=== PATIENT | female | born 1990 | race African-American/Black ===

== ENCOUNTER 2018-03-01 13:42 | Emergency (ER) | payer OTHER ==
[~2018-03-01] VITALS: Ht 165.1 cm; Wt 64.9 kg
[2018-03-01] MEDS ORDERED: NKM (13:49)
[2018-03-01 13:53] VITALS: BP 137/90
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
[2018-03-01] MEDS ORDERED: Methocarbamol 500mg tab ORAL ONE (14:00)
[2018-03-01] MEDS ORDERED: Acetaminophen 500mg (ES) tab ORAL ONE (14:00)
--- NOTE | 2018-03-01 14:10 | NUR ---
ED Nurse Note: ua sent down to lab
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
--- NOTE | 2018-03-01 14:25 | NUR ---
ED Nurse Note: x-ray called
[2018-03-01] MEDS ORDERED: TYLENOL EXTRA500 MG ORAL (16:10)
[2018-03-01] MEDS ORDERED: ROBAXIN500 MG PO (16:10)
[2018-03-01] MEDS ORDERED: LIDOCAINE700 M1 TP (16:10)
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
[2018-03-01 16:47] VITALS: BP 137/90
--- NOTE | 2018-03-01 16:47 | NUR ---
ED Nurse Note: PT is medically cleared per ERMD order. pt is stable for transfer. pt status condition and vital signs are reported to ERMD prior to DC. pt vital signs are stable. pt is alert and oriented times 4. pt left with all belongings, including DC notes and prescriptions. pt was able to teach back and understands DC notes and prescription. pt is instructed to follow up with primary MD as soon as possible, pt is instructed to return to ER if any variance in condition. ID band removed
== END 2018-03-01 16:40 | disposition home or self-care (01) ==
LOC: EMR 15:19
DX: S16.1XXA Strain of muscle, fascia and tendon at neck level, initial encounter (principal); V09.9XXA Pedestrian injured in unspecified transport accident, initial encounter; Y92.414 Local residential or business street as the place of occurrence of the external cause; J45.909 Unspecified asthma, uncomplicated
CPT/HCPCS: 72040; 72170; 81025; 99284